=== PATIENT | male | born 1945 | race Caucasian/White ===

== ENCOUNTER 2021-04-04 06:25 | Day surgery (SDC) | payer MEDICARE, OTHER ==
[~2021-04-04] VITALS: Ht 193 cm; Wt 129.5 kg
[~2021-04-04 06:25] MED LIST: ALLOPURINOL300 MG PO; BAYER CHEWABLE81 MG PO; CARVEDILOL6.25 MG PO; CENTRUM SILVER1 EAC1 PO; CLONIDINE HCL0.3 MG PO; COREG6.25 MG PO; COZAAR100 MG PO; DILTIAZEM ER180 MG PO; ELIQUIS5 MG PO; FINASTERIDE5 MG PO; FUROSEMIDE40 MG PO; K-TAB ER20 MEQ PO; KEFLEX500 MG PO; MAGNESIUM400 MG PO; MULTI-DAY VITA1 EACH PO; NITROGLYCERIN0.4 MG SL; NORVASC5 MG PO; PRAVACHOL40 MG PO
--- NOTE | 2021-04-04 08:31 | NUR ---
04/04/21 0831 Dianna Robles 0801 PT ARRIVED IN PACU SLEEPY WITH NO C/O'S. ABD SOFT AND PASSING FLATUS. 0815 PT AWAKE AND TALKING TO STAFF. 0820 SITTING UP IN BED SIPPING ON JUICE. 0830 UP TO BATHROOM. VOIDED. BACK AT BEDSIDE GETTING DRESSED.
--- NOTE | 2021-04-05 11:41 | OR ---
[facility] [address] [place], [place] [address] Signed DATE OF OPERATION: 04/04/2021 SURGEON: Francine Haley MD PREOPERATIVE DIAGNOSES: 1. Family history of colon cancer (father). 2. History of polyps including serrated adenoma of cecum, tubular adenoma of ascending colon. 3. Chronic medical problems including history of aortic valve replacement, chronic atrial fibrillation (anticoagulant with apixaban) and chronic alcoholism. POSTOPERATIVE DIAGNOSIS: 1. Sigmoid diverticulosis. 2. Small polyp of left colon. PROCEDURE: Total colonoscopy to cecum with snare polypectomy x1. ANESTHESIA: Intravenous sedation, propofol infusion. Pete Rod CRNA. PREOPERATIVE ANTIBIOTIC: Ampicillin, gentamicin. INDICATION: This 76-year-old white man is a patient of Dr. Sibley and is here for surveillance colonoscopy. He has no current symptoms of bleeding diarrhea or constipation. He is chronically anticoagulated with apixaban as previously noted and has been withdrawn from the medication 48 hours. He has artificial heart valve replacement from the past (aortic) and is treated additionally with ampicillin, gentamicin anticipating colonoscopy today. The risks of colonoscopy include, but are not limited to bleeding, infection, and perforation. He understands and wished to proceed. FINDINGS: The prep was good. Complete colonoscopy was undertaken to the cecum. There was no evidence of recurrent serrated adenoma of the cecum or right colon. He had a small adenomatous polyp of left colon, which was excised with cold morcellation technique. He had some hypertrophied anal papilla. No other abnormalities of concern. PROCEDURE NOTE: Electronically Signed By: FRANCINE HALEY MD 04/05/21 1141 PATIENT NAME: DREW ESCAMILLA OPERATIVE REPORT DATE OF : 49 REPORT #: [id number] PHYSICIAN: FRANCINE HALEY MD PCP: WENDY SIBLEY MD REPORT IS CONFIDENTIAL AND NOT TO BE RELEASED WITHOUT AUTHORIZATION [facility] [address] [place], [place] [address] Signed Patient was brought to the surgical endoscopy suite, placed in lateral decubitus position. He was given intravenous sedation with propofol infusional technique with and gentamicin had been administered and apixaban withheld. Digital rectal examination showed no anorectal abnormality. Olympus video colonoscope was passed in the rectum and manipulated throughout the colon noting diverticular change of the sigmoid and left colon. The scope was ultimately advanced to the cecum. The cecum appeared entirely normal including the appendiceal orifice and ileocecal valve. There was no evidence of recurrent serrated adenoma. The scope was withdrawn from that point and examination throughout showed no sign of abnormality other than scattered diverticula until approximately 60-70 cm from the anal verge, where a small adenomatous-appearing polyp was noted, this was excised with cold snare technique completely. The specimen was passed for pathology. The scope was withdrawn and diverticular changes of sigmoid were noted again. With retroflexed view in the rectum demonstrated hypertrophied anal papilla, but no evidence of neoplasm. The scope was removed and the patient was taken to the recovery room in good condition. CONCLUDING DIAGNOSES: 1. Diverticulosis. 2. Polyps x1. PLAN: Recommend a repeat colonoscopy in 5 years. Recommend high-fiber diet generally speaking. Additionally, would restart apixaban in 48 hours given polypectomy was performed. Francine Haley MD JM/MODL /[id number] cc: Wendy Sibley MD Copies: WENDY SIBLEY MD Electronically Signed By: FRANCINE HALEY MD 04/05/21 114 PATIENT NAME: DREW ESCAMILLA OPERATIVE REPORT DATE OF : 49 REPORT #: [id number] PHYSICIAN: FRANCINE HALEY MD PCP: WENDY SIBLEY MD REPORT IS CONFIDENTIAL AND NOT TO BE RELEASED WITHOUT AUTHORIZATION [address] [place], [place] [address] Signed ~ Electronically Signed By: FRANCINE HALEY MD 04/05/21 1141 PATIENT NAME: DREW ESCAMILLA OPERATIVE REPORT DATE OF : 49 REPORT #: [id number] PHYSICIAN: FRANCINE HALEY MD PCP: WENDY SIBLEY MD REPORT IS CONFIDENTIAL AND NOT TO BE RELEASED WITHOUT AUTHORIZATION
--- NOTE | 2021-04-05 17:03 | PATH ---
[facility] [address] [place], [place] [address] Signed SPECIMEN(S): A DESCENDING LEFT COLON POLYP SPECIMEN SOURCE: A. DESCENDING LEFT COLON POLYP CLINICAL HISTORY: Pre Op: Family hx colon CA, hx colon adenomas / polyps. Post Op: Polyp x 1, diverticulosis. MICROSCOPIC DESCRIPTION: Histologic sections of all submitted blocks are examined by light microscopy. These findings, together with the gross examination, support the pathologic diagnosis. FINAL PATHOLOGIC DIAGNOSIS: Colon, descending/left, polyp, polypectomy: - Colonic mucosa with mild melanosis coli. - Negative for dysplasia or malignancy. COMMENT: Multiple additional deeper levels were examined. NAL:cml:C2NR GROSS DESCRIPTION: The specimen, labeled "TB, descending colon polyp," is received in formalin and consists of one menendez soft tissue fragment(s) that measure 0.2 cm in greatest dimension. The specimen is entirely submitted in cassette (A1). JS (under the direct supervision of a pathologist) The Gross Description was prepared using a voice recognition system. The report was reviewed for accuracy; however, sound-alike word errors, addition and/or deletions may occur. If there is any question about this report, please contact Client Services. PERFORMING LABORATORY: The technical component was performed by [facility], [address] [place] [id number] (Transportation Mechanic: Shelia Alvarado MD; CLIA# [id number]). [facility], [address] [address] (CLIA# [id number]). Diagnostician: Bee Harden MD PATIENT NAME: DREW ESCAMILLA PATHOLOGY DATE OF : 49 REPORT #: [id number] PHYSICIAN: [facility] PCP: WENDY CINTRON MD REPORT IS CONFIDENTIAL AND NOT TO BE RELEASED WITHOUT AUTHORIZATION [facility] [address] [place] [id number] Signed Pathologist Electronically Signed 04/05/2021 Copies: ~ PATIENT NAME: DREW ESCAMILLA PATHOLOGY DATE OF : 49 REPORT #: [id number] PHYSICIAN: [facility] PCP: WENDY CINTRON MD REPORT IS CONFIDENTIAL AND NOT TO BE RELEASED WITHOUT AUTHORIZATION
== END 2021-04-04 08:40 | disposition home or self-care (01) ==
LOC: DS 06:25 → OPS 06:25 → DS 06:45 → OPS 06:45
PROVIDERS: ATTEND Surgery
PROC: 0DBM8ZX Excision of Descending Colon, Via Natural or Artificial Opening Endoscopic, Diagnostic (ICD-10-PCS; principal; 2021-04-04 06:45)
DX: Z12.11 Encounter for screening for malignant neoplasm of colon (principal); K57.30 Diverticulosis of large intestine without perforation or abscess without bleeding; K62.89 Other specified diseases of anus and rectum; K63.89 Other specified diseases of intestine; I11.0 Hypertensive heart disease with heart failure; I50.9 Heart failure, unspecified; J44.9 Chronic obstructive pulmonary disease, unspecified; I48.20 Chronic atrial fibrillation, unspecified; E78.00 Pure hypercholesterolemia, unspecified; I27.20 Pulmonary hypertension, unspecified; G47.30 Sleep apnea, unspecified; M10.9 Gout, unspecified; F10.20 Alcohol dependence, uncomplicated; E66.01 Morbid (severe) obesity due to excess calories; Z68.35 Body mass index [BMI] 35.0-35.9, adult; Z79.01 Long term (current) use of anticoagulants; Z79.899 Other long term (current) drug therapy; Z86.010 Personal history of colon polyps; Z80.0 Family history of malignant neoplasm of digestive organs; Z79.02 Long term (current) use of antithrombotics/antiplatelets; Z95.4 Presence of other heart-valve replacement; Z95.5 Presence of coronary angioplasty implant and graft; Z79.82 Long term (current) use of aspirin
CPT/HCPCS: 88305; J0290; J1580; J2001; J2704; J7121